=== PATIENT | female | born 1960 | race Two or more races ===

== ENCOUNTER 2025-03-20 09:46 | Outpatient (AMB) | payer MEDICARE, MEDICAID, SELFPAY ==
--- NOTE | 2025-03-20 10:41 | ORTHONT_ITS ---
Vital signs 03/20/25 10:41 Comment WHEELCHAIR BOUND Med/Allergies Allergies & Medications Allergies No Known Drug Allergies Allergy (Verified 03/20/25 10:42) Medication Reconciliation apixaban 2.5 mg tablet (Eliquis) 2.5 mg PO BID 03/20/25 [History Confirmed 03/20/25] aspirin 81 mg tablet 81 mg PO QDAY 03/20/25 [History Confirmed 03/20/25] atorvastatin 80 mg tablet 80 mg PO QDAY 03/20/25 [History Confirmed 03/20/25] donepezil 5 mg tablet 5 mg PO QDAY 03/20/25 [History Confirmed 03/20/25] ezetimibe 10 mg tablet 10 mg PO QDAY 03/20/25 [History Confirmed 03/20/25] hydrocodone 5 mg-acetaminophen 325 mg tablet 1 tab PO BID PRN 03/20/25 [History Confirmed 03/20/25] insulin glargine 100 unit/mL (3 mL) subcutaneous pen (Basaglar KwikPen U-100 Insulin) 10 unit subcut QPM 03/20/25 [History Confirmed 03/20/25] nifedipine 60 mg tablet,extended release 60 mg PO QDAY 03/20/25 [History Confirmed 03/20/25] omeprazole 10 mg capsule,delayed release 10 mg PO QDAY 03/20/25 [History Confirmed 03/20/25] pregabalin 25 mg capsule (Lyrica) 25 mg PO QDAY 03/20/25 [History Confirmed 03/20/25] Exam Exam Patient is in no acute distress and is cooperative with the examination today. Breathing is nonlabored. In no respiratory distress. Patient has no paraspinal tenderness. Spinal deformity cannot be appreciated. The gait of the patient is nonantalgic Bilateral extremities were evaluated and demonstrates sensation intact to light touch. Palpable pedal pulses are present. No significant edema is present. Bilateral knees were examined and the patient has full strength and range of motion.. The left hip was examined. Patient was able to flex to 90 degrees, adduct to 30 degrees, abduct to 40 degrees, internally rotate to 20 degrees, and externally rotate to 20 degrees. Patient has a negative logroll. Stinchfield is negative. The patient is nontender diffusely to touch. The right hip was examined. Patient was able to flex to 90 degrees, adduct to 30 degrees, abduct to 40 degrees, internally rotate to 20 degrees, and externally rotate to 20 degrees. Patient has a negative logroll. The stinchfield is negative. Right hip incision is clean dry intact Patient does not have hip x-rays today Assessment and Plan Problem List (1) Right hip pain: Status: Acute Plan: Patient is a 64-year-old female with right hip pain status post right hip revision 10 to 15 years ago. She has multiple medical comorbidities including stroke and myocardial infarction. I would like to get x-rays to better evaluate the right hip. She has no pain with logroll. All her pain is actually in her groin. Advanced Care Planning Discussion Advance care planning discussed with:: patient Office Procedures GNS Level of Care Nursing/Assessment Patient Status: Initial/New Patient Nursing Assessment/Reassesment: Medication Reconciliation, Update PMH in EMR and Vital Signs Coordination of Care: Complex Care/Chronic Disease 5 or more, Education Complex Pt/Fam, Consent,records obtained, informed consent, Lab and Imaging orders, Results/Orders obtained and Staff clarify orders New Patient Charge New Patient Point Assignment: 1119 New Patient Point Charge: WAFER MOUNTER Level 4 ([id number]) MA Intake Visit Data Collection New Patient or Established: New Patient (never been to [facility]) Reason for Visit:: HIP PAIN Seen by Clinical Staff ONLY (RN/MA): No Verbal consent obtained for Telemed visit?: No Ios Developer Required: No PCP or OBGYN visit in last 3 months: Yes Hx Now: No Do You Feel Safe at Home: Yes Authorities Contacted: N/A Questionairres Past Medical History Past Medical History Have you ever been diagnosed with any of the following: Cardiology Problems Myocardial Infarction: Yes Respiratory Problems Smoking: No Smoking Cessation Counseling: No Smoking Exposure: No Endocrine Problems Systemic Lupus Erythematosus: Yes Surgical History Total Hip Replacement: Yes Subjective Visit Visit for: new patient and hip Immunization / Flu Flu Vaccine in the Last 12 Months: No Flu Vaccine Exclusion Criteria: No Exclusion Criteria History of Present Illness Chief complaint: Hip pain, patient stated she had her hip replaced but can recall the surgeons name, she then had to have hip replacement revised which was in [place] Gabrielle is a 64-year-old female with history of lupus and multiple medical comorbidities including 3 strokes recently as well as a heart attack. She had surgery at [place] approximately 10 to 15 years and was revised there as well. She is is not exactly sure why it was revised. She reports that she had a recent stroke and is now walking again. She continues to improve with her stroke recovery. She does use a walker Personal History Occupation: disabled Red flag PMH: Blood thinners and BMI BMI Counceling provided: Yes Pain Pain level (0-10): 6 Pain duration: comes and goes Pain location: groin Pain quality: sharp, dull and aching Associated signs & symptoms: none Ambulatory data Ambulatory device: other (specify) (wheelchair ) Treatments Improvement with previous injections: No Improvement with PT: No Improvement with NSAIDS: no Review of Systems Review of Systems: All systems negative unless otherwise noted in HPI.
--- NOTE | 2025-03-20 10:54 | XR_ITS ---
Examination:Right hip AP, lateral, AP pelvis 3 views Technique: Hip AP lateral, AP pelvis, 3 views Exam date and time:March 20, 2025 1112 hours INDICATIONS: Right hip pain 10 years FINDINGS: Severe osteopenia Total right hip arthroplasty. Satisfactory alignment Moderate to advanced left hip osteoarthritis No pelvic fracture IMPRESSION: Total right hip arthroplasty with satisfactory alignment.
== END 2025-03-20 10:57 | disposition home or self-care (01) ==
PROVIDERS: PCP Family Medicine; Referring Provider Family Medicine; Supervising Provider Orthopaedic Surgery Adult Reconstructive Orthopaedic Surgery; Visit Provider Orthopaedic Surgery Adult Reconstructive Orthopaedic Surgery
DX: M25.551 Pain in right hip (principal); I25.2 Old myocardial infarction; M32.9 Systemic lupus erythematosus, unspecified; Z96.641 Presence of right artificial hip joint
CPT/HCPCS: 73502; 99204; G0463

== ENCOUNTER 2025-04-04 13:42 | Outpatient (AMB) | payer MEDICARE, MEDICAID, SELFPAY ==
[2025-04-04 13:58] VITALS: BP 134/79; PULSE 85; RESP 18; TEMP 36.6; O2SAT 91
--- NOTE | 2025-04-04 13:58 | ORTHONT_ITS ---
Vital signs 04/04/25 13:58 Weight 54.431 kg Weight Measurement Method Estimated by Patient BP 134/79 H Blood Pressure Source Automatic Cuff Blood Pressure Location Left Upper Arm Position Sitting Respiration 18 Pulse 85 Pulse Source Monitor Temp 97.8 F Temp Source Temporal Artery Scan Pulse Oximetry (%) 91 L Oxygen Delivery Method Room Air Comment WHEEL CHAIR BOUND Med/Allergies Allergies & Medications Allergies No Known Drug Allergies Allergy (Verified 04/04/25 13:59) Medication Reconciliation apixaban 2.5 mg tablet (Eliquis) 2.5 mg PO BID 03/20/25 [History Confirmed 04/04/25] aspirin 81 mg tablet 81 mg PO QDAY 03/20/25 [History Confirmed 04/04/25] atorvastatin 80 mg tablet 80 mg PO QDAY 03/20/25 [History Confirmed 04/04/25] donepezil 5 mg tablet 5 mg PO QDAY 03/20/25 [History Confirmed 04/04/25] ezetimibe 10 mg tablet 10 mg PO QDAY 03/20/25 [History Confirmed 04/04/25] hydrocodone 5 mg-acetaminophen 325 mg tablet 1 tab PO BID PRN 03/20/25 [History Confirmed 04/04/25] insulin glargine 100 unit/mL (3 mL) subcutaneous pen (Basaglar KwikPen U-100 Insulin) 10 unit subcut QPM 03/20/25 [History Confirmed 04/04/25] nifedipine 60 mg tablet,extended release 60 mg PO QDAY 03/20/25 [History Confirmed 04/04/25] omeprazole 10 mg capsule,delayed release 10 mg PO QDAY 03/20/25 [History Confirmed 04/04/25] pregabalin 25 mg capsule (Lyrica) 25 mg PO QDAY 03/20/25 [History Confirmed 04/04/25] Exam Exam Patient is in no acute distress and is cooperative with the examination today. Breathing is nonlabored. In no respiratory distress. Patient has no paraspinal tenderness. Spinal deformity cannot be appreciated. The gait of the patient is nonantalgic Bilateral extremities were evaluated and demonstrates sensation intact to light touch. Palpable pedal pulses are present. No significant edema is present. Bilateral knees were examined and the patient has full strength and range of motion.. The left hip was examined. Patient was able to flex to 90 degrees, adduct to 30 degrees, abduct to 40 degrees, internally rotate to 20 degrees, and externally rotate to 20 degrees. Patient has a negative logroll. Stinchfield is negative. The patient is nontender diffusely to touch. The right hip was examined. Patient was able to flex to 90 degrees, adduct to 30 degrees, abduct to 40 degrees, internally rotate to 20 degrees, and externally rotate to 20 degrees. Patient has a negative logroll. The stinchfield is negative. Right hip incision is clean dry intact Patient Has a longstem modular backup Total hip replacement in good position and alignment. The bone is very weak approximately Assessment and Plan Problem List (1) Right hip pain: Status: Acute Plan: Patient is a 64-year-old female with right hip pain status post right hip revision 10 to 15 years ago. She has multiple medical comorbidities including stroke and myocardial infarction. We recommend continued physical therapy. She is very osteopenic and we recommend continued stroke physical therapy Advanced Care Planning Discussion Advance care planning discussed with:: patient and child Office Procedures GNS Level of Care Nursing/Assessment Patient Status: Established Patient Nursing Assessment/Reassesment: Medication Reconciliation, Update PMH in EMR and Vital Signs Coordination of Care: Complex Care and Chronic Disease 1-5, Education Complex Pt/Fam, Consent,records obtained, informed consent, Results/Orders obtained and Staff clarify orders Established Patient Charge Established Patient Point Assignment: 95 Established Patient Point Charge: EP Level 3 (80-115) ID Intake Visit Data Collection New Patient or Established: Established Patient (seen at [facility] within 3 years) Reason for Visit:: XRAY RESULTS PCP or OBGYN visit in last 3 months: Yes Hx Now: No Do You Feel Safe at Home: Yes Authorities Contacted: N/A Questionairres Past Medical History Past Medical History Have you ever been diagnosed with any of the following: Cardiology Problems Myocardial Infarction: Yes Respiratory Problems Smoking: No Smoking Cessation Counseling: No Smoking Exposure: No Endocrine Problems Systemic Lupus Erythematosus: Yes Surgical History Total Hip Replacement: Yes Subjective Visit Visit for: new patient, follow up visit, hip and x-rays Immunization / Flu Flu Vaccine in the Last 12 Months: No Flu Vaccine Exclusion Criteria: No Exclusion Criteria History of Present Illness Chief complaint: Hip pain, patient stated she had her hip replaced but can recall the surgeons name, she then had to have hip replacement revised which was in [place] Gabrielle is a 64-year-old female with history of lupus and multiple medical comorbidities including 3 strokes recently as well as a heart attack. She had surgery at [place] approximately 10 to 15 years and was revised there as well. She is is not exactly sure why it was revised. She reports that she had a recent stroke and is now walking again. She continues to improve with her stroke recovery. She does use a walker. Personal History Occupation: disabled Red flag PMH: Blood thinners and BMI BMI Counceling provided: Yes Pain Pain level (0-10): 6 Pain duration: comes and goes Pain location: groin Pain quality: sharp, dull and aching Associated signs & symptoms: none Ambulatory data Ambulatory device: other (specify) (WHEEL CHAIR) Treatments Improvement with previous injections: No Improvement with PT: No Improvement with NSAIDS: no Review of Systems Review of Systems: All systems negative unless otherwise noted in HPI.
== END 2025-04-04 14:04 | disposition home or self-care (01) ==
LOC: HODSRG 13:42
PROVIDERS: PCP Family Medicine; Referring Provider Family Medicine; Supervising Provider Orthopaedic Surgery Adult Reconstructive Orthopaedic Surgery; Visit Provider Orthopaedic Surgery Adult Reconstructive Orthopaedic Surgery
DX: M25.551 Pain in right hip (principal); I25.2 Old myocardial infarction; Z86.73 Personal history of transient ischemic attack (TIA), and cerebral infarction without residual deficits; M32.9 Systemic lupus erythematosus, unspecified
CPT/HCPCS: 99213; G0463